=== PATIENT | male | born 1955 | race Caucasian/White ===

== ENCOUNTER → 2016-10-11 | Day surgery (SDC) | payer OTHER ==
[2016-10-11] VITALS (11 sets, daily range): BP systolic 100–126; BP diastolic 57–83
[~2016-10-11] VITALS: Ht 188 cm; Wt 86.2 kg
[~2016-10-11] MED LIST: Bupivacaine w/Epi 0.25% 30ml Vial INJ ONE; DESCOVY 200-251 EACH PO; DiphenhydrAMINE 50mg/ml Inj IVP PRN; HYDROmorphone 1mg/ml Carpuject SUBQ PRN; Hydromorphone 0.5mg/0.5ml inj IVP PRN; IRBESARTAN-HCT1 EAC2 PO; Ketorolac 30mg Inj ONE; LR 1000ml 1,000 ML IVLG SCH; LR 1000ml ONE; Meperidine 25mg/ml Inj IV PRN; Metoclopramide 10mg/2ml Inj IVP PRN; Midazolam 2mg/2ml Inj ONE; NS Irrig 1000ml IRRIG ONE; POTASSIUM99 M3 PO; PROSCAR5 MG ORAL; Propofol 10mg/ml 20ml IV ONE; Sterile Water Irrig 1000ml IRRIG ONE; TIVICAY50 MG ORAL; Tylenol #3 tab (300mg/30mg) ORAL PRN; VITAMIN D-40400 UNIT ORAL; fentaNYL 100 mcg/2 mL IV ONE
--- NOTE | 2016-10-11 02:08 | History and Physical Report ---
DATE OF ADMISSION: 10/11/2016 REASON FOR ADMISSION: Outpatient surgery for repair of right inguinal hernia. PERTINENT HISTORY: The patient is a 61-year-old male with history of an increasing size of right inguinal hernia bulge for several weeks prior to seeing me on 09/04/2016. There were no signs or symptoms of small bowel obstruction, no incarceration. The patient saw his primary physician, Dr. Rae, who referred him to me for evaluation of surgery. PAST MEDICAL HISTORY: History of HIV disease positive, low normal T-cells, viral load undetectable, history of hypertension, history of diabetes mellitus, history of nasal septal surgery for polyps, and history of tonsillectomy. MEDICATIONS: Metformin, Tivicay, Mesavoy, Irberutin, and hydrochlorothiazide 300/12.5 mg. ALLERGIES: None known. REVIEW OF SYSTEMS: HEENT: No headaches, tinnitus, or dysphagia. Cardiopulmonary: No history of chest pain, shortness of breath, cough, or sputum. Gastrointestinal: No nausea or vomiting. No diarrhea or constipation. Genitourinary: No dysuria or hematuria. PHYSICAL EXAMINATION: VITAL SIGNS: Blood pressure is 130/84, temperature is 98 degrees, pulse 70, and respirations 18. GENERAL: The patient is a well developed, middle-aged male, in no distress. HEENT: Normal. NECK: Supple. LUNGS: Clear. HEART: Rhythmic and regular. ABDOMEN: Soft. Bowel sounds are normoactive. There is a reducible right inguinal hernia. Minimal tenderness. GENITALIA: Normal. RECTAL: Deferred. EXTREMITIES: Good range of motion. IMPRESSION: 1. Right inguinal hernia. 2. Human immunodeficiency virus infection. 3. History of hypertension. 4. Diabetes mellitus. PLAN: The patient is being admitted to undergo an outpatient repair of right inguinal hernia. He understands the nature of the procedure, the indications, risks, benefits, possible complications, and he wishes to proceed. Emmanuel Cruz M.D. DR: ISABEL JOB#: [id number] CC:
--- NOTE | 2016-10-11 07:28 | Pre-Procedure Note/Attestation ---
Pre-Procedure Note/Attestation Complete Prior to Procedure Planned Procedure: right Procedure Narrative: repair of right inguinal hernia Indications for Procedure Pre-Operative Diagnosis: right inguinal hernia Attestation I attest that I discussed the nature of the procedure; its benefits; risks and complications; and alternatives (and the risks and benefits of such alternatives ), prior to the procedure, with the patient (or the patient's legal field sales representative). I attest that, if there was a reasonable possibility of needing a blood transfusion, the patient (or the patient's legal field sales representative) was given the [facility] standardized written summary, pursuant to the [place] Blood Safety Act ([place] Health and Safety Code # 1645, as amended). I attest that I re-evaluated the patient just prior to the surgery and that there has been no change in the patient's H&P, except as documented below: PATTIE HENRY Oct 11, 2016 07:28
--- NOTE | 2016-10-11 07:58 | Anethesia Preoperative Eval ---
Anesthesia Pre-op PMH/ROS General Date of Evaluation: Oct 11, 2016 Time of Evaluation: 07:18 Anesthesiologist: Christina ASA Score: ASA 2 Mallampati Score Class I : Soft palate, uvula, fauces, pillars visible Class II: Soft palate, uvula, fauces visible Class III: Soft palate, base of uvula visible Class IV: Only hard plate visible Mallampati Classification: Class II Surgeon: Nancy Diagnosis: R injuinal hernia Surgical Procedure: R injuinal hernia repair Anesthesia History: none Allergies: Coded Allergies: No Known Allergies (Unverified , 10/10/16) Medications: see eMAR Past Medical History Cardiovascular: Reports: HTN, Denies: CAD, ND, arrhythmia, other, valve dz Pulmonary: Denies: COPD, REJI, asthma, other Gastrointestinal/Genitourinary: Reports: GERD, Denies: CRI, ESRD, other Neurologic/Psychiatric: Denies: CVA, TIA, dementia, depression/anxiety, other Endocrine: Reports: DM, Denies: hypothyroidism, other, steroids HEENT: Reports: other - HIV stable on antivirals, Denies: MODOC (L), MODOC (R), cataract (L), cataract (R), glaucoma Hematology/Immune: Denies: DVT, anemia, bleeding disorder, other Musculoskeletal/Integumentary: Denies: DDD, DJD, OA, RA, edema, other PMH Narrative: as above PSxH Narrative: T&A , dental Anesthesia Pre-op Phys. Exam Physician Exam Last Vital Signs Date Time Temp Pulse Resp B/P Pulse Ox O2 Delivery O2 Flow Rate FiO2 10/11/16 06:19 97.5 67 20 110/80 98 Room Air Constitutional: NAD Neurologic: CN 2-12 intact Cardiovascular: RRR, no M/R/G Respiratory: CTA Gastrointestinal: S/NT/ND Airway Exam Mallampati Score: Class II MO: full Neck: flexible ROM: full Teeth: intact Dentures: no lower, no upper Anesthesia Pre-op A/P Labs see chart Studies Pre-op Studies: EKG Risk Assessment & Plan Assessment: ASA 2 Plan: GA with LMA Status Change Before Surgery: No Pre-Antibiotics Drug: Ancef 2gr. Given Within 1 Hr of Incision: Yes Time Given: 07:54 WAN MCGRATH M.D. Oct 11, 2016 07:58
--- NOTE | 2016-10-11 08:25 | Brief Operative Note ---
Immediate Post Operative Note Operative Note Pre-op Diagnosis: right inguinal hernia Procedure: repair of right inguinal hernia with mesh Post-op Diagnosis: same as pre-op Findings: other - direct hernia Surgeon: brain Anesthesiologist: morelia Anesthesia: general Specimen: none Complications: yes Condition: unstable Estimated Blood Loss: minimal Drains: none Implant(s) used?: Yes PATTIE HENRY Oct 11, 2016 08:25
--- NOTE | 2016-10-11 09:22 | Immediate Post-Op Evaluation ---
Immediate Post-Op Evalulation Immediate Post-Op Evalulation Procedure: R injuinal hernia repair Date of Evaluation: Oct 11, 2016 Time of Evaluation: 08:34 IV Fluids: 1100 Blood Products: none Estimated Blood Loss: min Urinary Output: none Blood Pressure Systolic: 108 Blood Pressure Diastolic: 56 Pulse Rate: 74 Respiratory Rate: 20 O2 Sat by Pulse Oximetry: 99 Temperature (Fahrenheit): 97.5 Pain Score (1-10): 2 Nausea: No Vomiting: No Complications none Patient Status: reacts, patent, none Hydration Status: adequate WAN MCGRATH M.D. Oct 11, 2016 09:22
--- NOTE | 2016-10-11 11:34 | 48 Hour Post Anesthesia Eval ---
Post Anesthesia Evaluation Procedure: R injuinal hernia repair Date of Evaluation: Oct 11, 2016 Time of Evaluation: 11:33 Blood Pressure Systolic: 108 0: 57 Pulse Rate: 64 Respiratory Rate: 20 Temperature (Fahrenheit): 97.6 O2 Sat by Pulse Oximetry: 98 Airway: patent Nausea: No Vomiting: No Pain Intensity: 2 Hydration Status: adequate Cardiopulmonary Status: stable Mental Status/LOC: patient returned to baseline Follow-up Care/Observations: n/a Post-Anesthesia Complications: none Follow-up care needed: ready to discharge WAN MCGRATH M.D. Oct 11, 2016 11:34
--- NOTE | 2016-10-11 17:38 | Operative Note - Dictated ---
DATE OF OPERATION: 10/11/2016 SURGEON: Emmanuel Cruz M.D. FUR JOINER: None. ANESTHESIOLOGIST: Wily Vasquez M.D. ANESTHESIA: General endotracheal tube. PREOPERATIVE DIAGNOSIS: Right inguinal hernia. POSTOPERATIVE DIAGNOSIS: Right inguinal hernia. NAME OF OPERATION: Repair of right inguinal hernia with Prolene mesh. FINDINGS AND INDICATIONS: The patient is a very pleasant 61-year-old, male with a history of progressively enlarging painful, but reducible right inguinal hernia bulge. He sought attention from his attending physician, referred him to me for evaluation and surgery. On exam, he had this obvious hernia bulge, which was reducible and slightly tender and at surgery indeed a moderate-sized direct inguinal hernia was found, no indirect inguinal hernia. The procedure was done uneventfully as described below. PROCEDURE: With the patient lying in the supine position on the operating table, under general anesthesia with the entire right lower abdominal and groin regions prepped and draped in usual sterile fashion with Betadine, an oblique incision was carried out on the right groin following skin lines. Subcutaneous tissues were divided. The external oblique aponeurosis was identified and opened in the direction of its fibers. The ilioinguinal nerve was identified, retracted medially and the cord was isolated and skeletonized with no indirect inguinal hernia found. The direct inguinal hernia was isolated, imbricated with 2-0 Vicryl material and the pelvic floor was then reinforced above this with a ProLite nylon mesh, which was fashioned to fit the defect, and the 2-0 Prolene material was used to approximate the shelving edge of the inguinal ligament to the combined aponeurosis of the internal oblique and transversus abdominis muscles with the mesh as the interface. A slit was made on the lateral aspect of the mesh to allow the cord structures to go through and the Prolene sutures snugly ligated recreating a nice internal ring. The area was irrigated hemostasis was adequate. The cord and the nerve were then replaced anatomically and the external oblique aponeurosis was closed with a continuous 3-0 Vicryl suture and the subcutaneous tissues with 3-0 Vicryl interrupted suture and the skin with 4-0 Vicryl subcuticular sutures and Steri-Strips. Marcaine 0.5% with epinephrine 30 mL was injected for long-acting local anesthetic and sterile dressing was applied with the Steri-Strips 4x4s and Tegaderm. The patient tolerated the procedure well. Estimated blood loss less than 5 mL. Sponge and needle counts were correct. He went to the recovery room in stable condition. Emmanuel Cruz M.D. DR: CARLO JOB#: [id number] CC:
== END | disposition home or self-care (01) ==
LOC: SUR 05:37
DX: K40.90 Unilateral inguinal hernia, without obstruction or gangrene, not specified as recurrent (principal); I10 Essential (primary) hypertension; E11.9 Type 2 diabetes mellitus without complications; Z79.84 Long term (current) use of oral hypoglycemic drugs; K21.9 Gastro-esophageal reflux disease without esophagitis
CPT/HCPCS: 49505; 82962; C1781; J0690; J1885; J2250; J2405; J2704; J3010; J7120; 94003; 94150